=== PATIENT | female | born 1990 | race Caucasian/White ===

== ENCOUNTER 2025-06-22 20:56 | Outpatient (CLI) | payer BC, SELFPAY | END 2025-06-22 20:57 | disposition home or self-care (01) | PROVIDERS: Visit Provider Emergency Medicine | DX: S09.90XA Unspecified injury of head, initial encounter (principal); S89.91XA Unspecified injury of right lower leg, initial encounter; T75.1XXA Unspecified effects of drowning and nonfatal submersion, initial encounter; V90.0 Drowning and submersion due to watercraft overturning; Y92.828 Other wilderness area as the place of occurrence of the external cause | CPT/HCPCS: A0425; A0427 ==

== ENCOUNTER 2025-06-22 21:37 | Emergency (ER) | payer BC, SELFPAY ==
[2025-06-22 21:38] VITALS: BP 130/86; PULSE 88; RESP 16; TEMP 36.8; O2SAT 98; BMI 25.8
--- NOTE | 2025-06-22 21:53 | CRLHL7_ITS ---
For Patients: As a result of the Cures Act, medical imaging exams and procedure reports are released immediately into your electronic medical record. You may view this report before your referring provider. If you have questions, please contact your health care provider. Indication: Ankle injury while kayaking. Technique: Right ankle 3 views. Comparison: None. Findings: Bones: Alignment is normal. No fractures or bone lesions. Joint spaces: Unremarkable. Soft tissues: Mild ankle soft tissue swelling. Impression: No acute fracture. Dictated by Cesar Granger MD @ 06/22/2025 10:52:52 PM (Electronically Signed)
--- NOTE | 2025-06-22 21:55 | CRLHL7_ITS ---
For Patients: As a result of the Cures Act, medical imaging exams and procedure reports are released immediately into your electronic medical record. You may view this report before your referring provider. If you have questions, please contact your health care provider. Indication: Injured right knee while kayaking. Technique: Right knee 3 views Comparison: None Findings: Bones: No acute fracture or dislocation. Partially visualized femur plate and screw hardware without evidence of complication. Joint spaces: No joint effusion. Joint spaces are well maintained. No substantial degenerative changes. Soft tissues: Unremarkable. Impression: No acute fracture. Dictated by Cesar Granger MD @ 06/22/2025 10:55:43 PM (Electronically Signed)
--- OUTSIDE RECORDS SUMMARY | 2025-06-22 22:35 | XMS_ITS | Clinical Summary ---
Author Organization [facility] Address [address] [place] [id number] Care Team Providers Care Police Dispatcher Name Role Phone Alba Magaña PsyD, LP Unavailable + Conner Del Toro MD Primary Care Provider [phone] Katarzyna Rios MD Unavailable Allergies Active Allergy Reactions Criticality Noted Date Comments Glucosamine Other - Describe In Comment Field 05/25/2018 Milk Hives 02/11/2020 Lactose intolerant 2019 Shellfish Containing Products Anaphylaxis,Nausea Only,Vomiting High 02/22/2016 Venom-Wasp Anaphylaxis,Rash High 03/20/2025 Medications sodium fluoride dental 1.1 % gel BRUSH 1 TO 2 TIMES DAILY 12/02/19 21 Active TENS unit and electrodes cmpkIndications :Pelvic pain As directed. 4 lead Once order is placed, it should be printed and faxed to [employer] (the distributor), along with a printed picture ID of the patient, to . If [employer] needs to be reached for clarification or speak to one of their representatives, they may be reached at . Many times, insurance will not cover the cost of the tens unit (and pads), and it is often more cost efficient for the patient to order the TENS device (and pads) on [employer], as the cost is close to around $30. With either ordering through [employer] or [employer], directions will be included in the package and patient would follow those 1 Each 02/29/20 22 Active SUMAtriptan (IMITREX) 100 mg tabletIndicatio ns:Migraine syndrome TAKE 1 TABLET BY MOUTH TWICE DAILY NEEDED FOR MIGRAINE. GIVE AT MINIMUM OF 2 HOURS APART. MAX DOSE 200MG PER 24 HOURS 10 Tablet 3 11/22/19 24 Active folic acid 1 mg tablet 10/30/20 23 Active Emgality Pen 120 mg/mL penIndications: Migraine syndrome INJECT 120MG UNDER THE SKIN EVERY 4 WEEKS. 1 mL 02/27/20 24 Active tub rider (Dexcom G7 Vat House Laborer) for continuous blood glucose monitor (CGM)Indication s:Hypoglycemia This is for the glucose LEAD ATG DEVELOPER , also order the sensors. 1 Each 08/07/20 24 Active sensor (Dexcom G7 Sensor) for continuous blood glucose monitor (CGM)Indication s:Hypoglycemia To be used to read blood sugars, change sensor every 10 days. This is for the glucose SENSOR, also order the tub rider. 9 Each 3 08/07/20 24 Active tiZANidine (ZANAFLEX) 4 mg tabletIndicatio ns:Scoliosis, or kyphoscoliosis, idiopathic Take 1 Tablet (4 mg) by mouth at bedtime. 90 Tablet 3 12/02/19 25 Active prochlorperazin e (COMPAZINE) 10 mg tabletIndicatio ns:Migraine syndrome Take 1 Tablet (10 mg) by mouth every 6 hours if needed for Nausea/Vomiting. 20 Tablet 1 12/02/19 25 Active gabapentin 300 mg capsuleIndicati ons:EDS (Asher-Danlos syndrome) (HC),Scoliosis, or kyphoscoliosis, idiopathic,Migr jim syndrome Take 3 Capsules (900 mg) by mouth two times daily. 180 Capsule 03/04/20 25 Active cloNIDine HCL 0.3 mg tabletIndicatio ns:PTSD (post-traumatic stress disorder) Take 1 Tablet (0.3 mg) by mouth at bedtime. 30 Tablet 5 03/04/20 25 Active ARIPiprazole 10 mg tabletIndicatio ns:PTSD (post-traumatic stress disorder),Curre nt severe episode of major depressive disorder without psychotic features, unspecified whether recurrent (HC) Take 1 Tablet (10 mg) by mouth once daily. 30 Tablet 5 03/04/20 25 Active EPINEPHrine 0.3 mg/0.3 mL auto-injectorIn dications:Aller gy history, seafood ADMINISTER 0.3 MG IN THE MUSCLE 1 TIME NEEDED FOR ALLERGIC REACTION 2 Each 1 03/21/20 25 Active albuterol HFA 90 mcg/actuation inhalerIndicati ons:SOB (shortness of breath) Inhale 1-2 Puffs by mouth every 4 hours if needed for Shortness Of Breath or Wheezing. 1 Each 04/11/20 25 Active galcanezumab-gn lm (Emgality Syringe) 120 mg/mL syrgIndications :Migraine syndrome Inject 120 mg subcutaneous every 4 weeks. 1 mL 12 04/11/20 25 Active dextromethorpha n-bupropion (Auvelity) 45-105 mg tabletIndicatio ns:Moderate episode of recurrent major depressive disorder (HC) Take 1 Tablet by mouth two times daily. 60 Tablet 04/17/20 25 Active hydrOXYzine HCL 50 mg tabletIndicatio ns:PTSD (post-traumatic stress disorder),Gener alized anxiety disorder Take 2 Tablets (100 mg) by mouth 3 times daily if needed (anxiety). 120 Tablet 04/17/20 25 Active clonazePAM (KLONOPIN) 1 mg tabletIndicatio ns:PTSD (post-traumatic stress disorder) Take 1 Tablet (1 mg) by mouth once daily if needed for Anxiety. 30 Tablet 1 05/27/20 25 Active metFORMIN (GLUCOPHAGE XR) 500 mg Extended-Releas e tabletIndicatio ns:Hyperglycemi a Take 1 Tablet (500 mg) by mouth once daily. 90 Tablet 1 06/10/20 25 Active clonazePAM 1 mg tabletIndicatio ns:PTSD (post-traumatic stress disorder) Take 1 Tablet (1 mg) by mouth once daily if needed for Anxiety. 30 Tablet 1 03/04/20 25 025 Discontin ued(Reord er (E-cancel not sent)) Active Problems Problem Noted Date Diagnosed Date Cervical cancer screening 05/15/2025 Overview (05/15/2025): 04/2025 NIL/HPV negative Plan: HPV based testing in 5 years Opioid use disorder in remission 01/03/2023 Overview (03/01/2023): Was started on opioids chronically by prior PCP for recurrent pain related to endometriosis and Asher Danlos injuries. She and I were able to taper her off of the opioids when we though she just had physical dependence but due to cravings, obtaining and using opioids without a prescription and withdrawals, we did diagnose opioid use disorder. Patient has significant complexity related to chronic pain, other sedating medications (gabapentin, clonazepam) and psychiatric history. Her also has chronic pain and is on opioids prescribed by the pain clinic. She did just finish intensive outpatient treatment at [facility]. I do think suboxone would be a great fit for her. We will refer to addiction medicine for initiation given complexity of her care and then I could take over management once stable. 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 03/2022 patient was able to taper off of chronic opioids and start on naltrexone, which is specifically for endometriosis related pain. Is also on meloxicam and gabapentin. For acute flares of pain: Patient will continue meloxicam, take cyclobenzaprine PRN and increase gabapentin to 600mg TID. If this isn't enough to get her through her pain, she will schedule an appointment, we will pause the naltrexone and try a high affinity opioid for a very brief period (2-3 days). For surgeries: Patient should stop naltrexone 2-3 days prior to surgery. Hydromorphone may be more effective for people on naltrexone as it has a higher opioid receptor binding capacity. Opioids can be used as normal. Then she should restart naltrexone (can start at a lower dose) 3-4 days after last opioid dose. 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 Mild persistent asthma 04/28/2021 Obsessive-compulsive disorder 02/15/2021 Mild episode of recurrent major depressive disor gabo 02/01/2021 PMDD (premenstrual dysphoric disorder) Scoliosis, or kyphoscoliosis, idiopathic 020 Migraine syndrome 08/03/2018 Postural dizziness with presyncope 05/11/2018 Surveillance of previously prescribed contracept jeanne pill 05/16/2017 Overview (05/16/2017): Currently on Viorelle, d/c'd April 2017 d/t RUQ pain Generalized anxiety disorder 08/02/2016 PTSD (post-traumatic stress disorder) 08/02/2016 Resolved Problems Problem Noted Date Diagnosed Date Resolved Date Current severe episode of ma vic depressive disorder without psychotic features, unspecified whether recurrent 12/02/2024 05/27/2025 Opioid withdrawal 12/06/2022 12/06/2022 Severe episode of recurrent major depressive disorder, without psychotic features 04/28/202102/2022 Anxiety 04/25/2018 03/23/[address] 01/05/2018 9 Breast pain, right 08/23/2017 Overview (08/27/2017): 08/23/2017: referral to [facility]: probable fibroadenomas, rck US in 6 mos Routine physical examination 05/15/2017 03/23/2022 Overview (05/16/2017): Last physical: 05/16/2017 Last pap smear: 2015 normal (can do every 3 yrs) Last TDAP: 2016 Last Lipid: 2015 Last TSH: Last FBS: Last mammogram: Last Colonoscopy: Last bone density scan: Encounters Date Type Department Care Team Description 06/10/2025 1:[address] [facility] [address] [place] [address] Conner Del Toro MD Telehealth (No vitals); Hospital F/U (06/08/2025 Hyperglycemia) 06/10/2025 Travel 06/08/2025 5:06 PM CDT - 06/08/2025 7:04 PM CDT Emergency [facility] [address] [place] [address] Constantine Hernandez MD Hyperglycemia (Primary Dx) Discharge Disposition: Home Self Care 06/08/2025 3:05 PM CDT Office Visit [facility] [address] [place] [phone] Orly Hatfield NP High Blood Sugar 06/08/2025 Travel 06/08/2025 Nurse Triage [address] [phone] Conner Del Toro MD High Blood Sugar 05/27/2025 2:45 PM CDT Telemedicine [facility] [address] [place] [phone] Katarzyna Rios MD Medication Management 05/27/2025 Travel 04/30/2025 1:50 PM CDT Office Visit [address] [phone] Conner Del Toro MD Pap Plan 04/30/2025 Travel 04/18/2025 Telephone [facility] [address] [place] [phone] Katarzyna Rios MD Prior Authorization (dextromethorphan-bupr opion (Auvelity) 45-105 mg tablet APPROVED 01/25/25-04/25/26) 04/17/2025 9:15 AM CDT Telemedicine [facility] [address] [place] [phone] Katarzyna Rios MD Follow Up; Medication Management; Telehealth 04/17/2025 Travel 04/11/2025 3:50 PM CDT Office Visit [address] [phone] Conner Del Toro MD Physical 04/11/2025 Travel 03/26/2025 9:45 AM CDT Office Visit [facility] [address] [place] [address] Facundo Wagner DPM Follow Up (Left foot, 4 week follow up) 03/26/2025 Travel from Last 3 Months Immunizations Immunization Administration Dates Next Due COVID-19 vaccine (Pfizer-Bio NTech 30mcg/0.3mL) PF, MDV 03/15/2021,02/21/2021 HPV 9 (Gardasil 9) 07/11/2018,04/25/2018 Influenza, IIV4 09/04/2020, 8,08/08/2017,2015 Influenza, IIV4 (=>6mos) MDV 07/26/2019 Tdap 12/27/2016 Family History Relation Name Status Comments Father Other Mother Other Social History Tobacco Use Types Packs/Day Years Used Date Smoking Tobacco: Never Passive Smoke Exposure: Never Smokeless Tobacco: Never Tobacco Cessation:Counseling Given: Yes Comments:NO EXPOSURE TO SECONDHAND SMOKE Alcohol Use Standard Drinks/Week Comments No 0 (1 standard drink = 0.6 oz pur e alcohol) PHQ-2 Answer Date Recorded PHQ-2 TOTAL SCORE 1 05/27/2025 Social Connections Answer Date Recorded Do you often feel lonely or isolated from those around you? 0 07/19/2024 Financial Resource Strain Answer Date R ecorded Difficulty of Paying Living Expenses 3 07/19/2024 Difficulty of Paying Living Expenses Not on file 07/19/2024 Food Insecurity Answer Date Recorded Do you worry your food will run out before you are able to buy more? 1 07/19/2024 Transportation Needs Answer Date Record ed Does lack of transportation keep you from medica l appointments? 1 07/19/2024 Does lack of transportation keep you from work, meetings or getting things that you need? 1 07/19/2024 Housing Stability Answer Date Recorded What is your housing situation today? 1 07/19/2024 Interpersonal Safety Answer Date Record ed Are you being hit, kicked, p ushed or yelled at (see row info)? No 06/08/2025 Interpersonal Safety Abuse 12 - 18 Not on file 06/08/2025 Interpersonal Safety Ambulatory Vulnerability No t on file 06/08/2025 Utilities Answer Date Recorded Do you have trouble paying f or utilities (for example, heat, electricity, water, phone)? 1 07/19/2024 Comments No Sex and Gender Information Value Date Recorded Sex Assigned at Not on file Legal Sex Female 11:41 AM SHOE SHINER Gender Identity Not on file Sexual Orientation Not on file Occupation Industry Job Start Date Job End Date [employer] Not on file Not on file Not on file Travel History Travel Start Travel End [place] 05/29/2025 06/03/2025 Obstetrics History Para Term AB IAB SAB Ectopic Multiple Livin g Live Births 0 0 0 0 0 0 0 0 0 0 Last Filed Vital Signs Vital Sign Reading Time Taken Comments Blood Pressure 111/77 06/08/2025 7:02 PM CDT Pulse 86 06/08/2025 4:13 PM CDT Temperature 36.7 C (98.1 F) 06/08/2025 4:13 PM CDT Respiratory Rate 12 06/08/2025 4:13 PM CDT Oxygen Saturation 98% 06/08/2025 4:13 PM CDT Inhaled Oxygen Concentration - - Weight 83.5 kg (184 lb) 06/08/2025 4:13 PM CDT Height 175.3 cm (5' 9) 06/08/2025 4:13 PM CDT Body Mass Index 27.17 06/08/2025 4:13 PM CDT Plan of Treatment Upcoming Encounters Date Type Department Care Team (Late st Contact Info) Description 07/08/2025 11:45 AM CDT Telemedicine [facility] [address] [place] [address] Katarzyna Rios MD [address] [place] [address] [address] [place] [address] Health Maintenance Due Date Last Done Comments Hepatitis B series for 19+ (1 of 3 - 19+ 3-dose series) 2011 COVID-19 vaccine series ( season) 2024 03/15/2021, 02/21/2021 Influenza Vaccine (#1) 2025 , 07/26/2019, 08/06/2018, Additional history exists BMI (ht and wt on same day) for age 18+ 04/30/2026 04/30/2025, 04/11/2025, 01/29/2025, Additional history exists Depression screening for age 12+ 05/27/2026 05/27/2025, 04/17/2025, 03/20/2025, Additional history exists Tetanus booster 12/27/2026 12/27/2016 Pap test for age 21-65 04/30/2030 , 04/30/2025, 03/23/2020, Additional history exists Hepatitis C screening for age 18-79 Completed 05/13/2017 HIV for age 15-65 Completed 05/10/2023 Pneumococcal series for age 6-49 Aged Out No longer eligible based on patient's age to complete this topic Medical Devices Implanted Type Area Hand Spray Operator Device Identifier Shelf Expiration Date Model / Serial / Lot Adhesion Barrier 5x6in Seprafilm Absorb - [id number] Implanted:Qty: 2 on 06/07/2022 by Jessie Hernandez DO at [facility] [employer] 02/22/2024 [id number] / / [id number] Adhesion Barrier 5x6in Seprafilm Absorb - [id number] Implanted:Qty: 1 on 06/07/2022 by Jessie Hernandez DO at [facility] [employer] 08/05/2024 [id number] / / [id number] Procedures Procedure Name Priority Date/Time Associated Diagnosis Comments UA W/ SEDIMENT EXAM REFLEXED PER CRITERIA STAT 06/08/2025 5:54 PM CDT CBC WITH AUTO DIFFERENTIAL STAT 06/08/2025 5:22 PM CDT ,SERUM QUALITATIVE STAT 06/08/2025 5:22 PM CDT BETA HYDROXYBUTYRATE IN HOUSE STAT 06/08/2025 5:22 PM CDT COMP METABOLIC PANEL STAT 06/08/2025 5:22 PM CDT BLOOD GAS,VENOUS STAT 06/08/2025 5:22 PM CDT CBC WITH AUTO DIFFERENTIAL STAT 06/08/2025 5:22 PM CDT GLUCOSE METER Routine 06/08/2025 4:13 PM CDT GUEST RELATIONS AGENT THIN PREP PAP SCREEN IMAGED Routine 04/30/2025 2:10 PM CDT Screening for malignant neoplasm of cervix HPV HIGH RISK Routine 04/30/2025 2:10 PM CDT Screening for malignant neoplasm of cervix HEMOGLOBIN A1C Routine 04/11/2025 4:40 PM CDT Well adult exam LIPID PANEL W REFLEX MEASURED LDL Routine 04/11/2025 4:40 PM CDT Well adult exam COMP METABOLIC PANEL Routine 04/11/2025 4:40 PM CDT Migraine syndrome SOB (shortness of breath) CBC WITH AUTO DIFFERENTIAL Routine 04/11/2025 4:40 PM CDT Migraine syndrome SOB (shortness of breath) LC HIV-1/O/2, 4TH GENERATION Routine 05/10/2023 1:51 PM CDT History of night sweats Weight loss, abnormal ANTI HCV Routine 05/13/2017 11:18 AM CDT Abdominal pain, RUQ from Last 3 Months or Most Recently Relevant to Health Maintenance Results * (ABNORMAL) UA W/ SEDIMENT EXAM REFLEXED PER CRITERIA (06/08/2025 5:54 PM CDT) COLOR Yellow Yellow Color 06/08/2025 6:05 PM [facility] CLARITY Clear Clear Clarity 06/08/2025 6:05 PM [facility] SPECIFIC GRAVITY,URINE >=1.030(A) 1.010, 1.015, 1.020, 1.025 06/08/2025 6:05 PM [facility] PH,URINE 5.5 6.0, 7.0, 8.0, 5.5, 6.5, 7.5, 8.5 06/08/2025 6:05 PM [facility] UROBILINOGEN, QUALITATIVE Normal Normal EU/dl 06/08/2025 6:05 PM [facility] PROTEIN, URINE Negative Negative mg/dL 06/08/2025 6:05 PM T [facility] GLUCOSE, URINE Negative Negative mg/dL 06/08/2025 6:05 PM [facility] KETONES,URINE Negative Negative mg/dL 06/08/2025 6:05 PM T [facility] BILIRUBIN,URI NE Negative Negative 06/08/2025 6:05 PM [facility] OCCULT BLOOD,URINE Negative Negative 06/08/2025 6:05 PM [facility] NITRITE Negative Negative 06/08/2025 6:05 PM [facility] LEUKOCYTE ESTERASE Negative Negative 06/08/2025 6:05 PM [facility] Urine URINE SPECIMEN / Unknown Non-Blood / Unknown 06/08/2025 5:54 PM CDT 06/08/2025 5:58 PM CDT us Constantine Hernandez MD URINE Final R esult Performing Organization Address City/State/[facility] Co de Phone Number [facility] [address] [place] [address] * CBC WITH AUTO DIFFERENTIAL (06/08/2025 5:22 PM CDT) WHITE BLOOD COUNT 6.8 4.5 - 11.0 thou/cu mm 06/08/2025 5:31 PM [facility] RED BLOOD COUNT 4.45 4.00 - 5.20 mil/cu mm 06/08/2025 5:31 PM [facility] HEMOGLOBIN 12.9 12.0 - 16.0 g/dL 06/08/2025 5:31 PM [facility] HEMATOCRIT 39.9 33.0 - 51.0 % 06/08/2025 5:31 PM [facility] MCV 90 80 - 100 fL 06/08/2025 5:31 PM [facility] MCH 29.0 26.0 - 34.0 pg 06/08/2025 5:31 PM [facility] MCHC 32.3 32.0 - 36.0 g/dL 06/08/2025 5:31 PM [facility] RDW 13.6 11.5 - 15.5 % 06/08/2025 5:31 PM [facility] PLATELET COUNT 248 140 - 440 thou/cu mm 06/08/2025 5:31 PM [facility] MPV 10.2 6.5 - 11.0 fL 06/08/2025 5:31 PM [facility] % NEUT 60.1 % 06/08/2025 5:31 PM [facility] % LYMPH 30.3 % 06/08/2025 5:31 PM [facility] % MONO 7.2 % 06/08/2025 5:31 PM [facility] % EOS 2.1 % 06/08/2025 5:31 PM [facility] % BASO 0.3 % 06/08/2025 5:31 PM [facility] ABSOLUTE NEUTROPHILS 4.1 1.7 - 7.0 thou/cu mm 06/08/2025 5:31 PM [facility] ABSOLUTE LYMPHOCYTES 2.1 0.9 - 2.9 thou/cu mm 06/08/2025 5:31 PM [facility] ABSOLUTE MONOCYTES 0.5 <0.9 thou/cu mm 06/08/2025 5:31 PM [facility] ABSOLUTE EOSINOPHILS 0.1 <0.5 thou/cu mm 06/08/2025 5:31 PM [facility] ABSOLUTE BASOPHILS 0.0 <0.3 thou/cu mm 06/08/2025 5:31 PM [facility] Blood BLOOD SPECIMEN / Unknown Butterfly / Unknown 06/08/2025 5:22 PM T 06/08/2025 5:26 PM T us Constantine Hernandez MD HEMATOLOGY Final R esult [facility] [address] [place] [address] * BETA HYDROXYBUTYRATE IN HOUSE (06/08/2025 5:22 PM CDT) Pathologist [facility] BETA HYDROXYBUTYRATE <0.6 <0.6 mmol/L 06/08/2025 5:28 PM CDT [facility] Blood BLOOD SPECIMEN / Unknown Butterfly / Unknown 06/08/2025 5:22 PM CDT 06/08/2025 5:26 PM CDT Constantine Hernandez MD SEND OUTS Final R esult [facility] [address] [place] [address] * ,SERUM QUALITATIVE (06/08/2025 5:22 PM CDT) Pathologist [facility] ,SERU M Negative Negative 06/08/2025 5:38 PM CDT [facility] Blood BLOOD SPECIMEN / Unknown Butterfly / Unknown 06/08/2025 5:22 PM CDT 06/08/2025 5:26 PM CDT Constantine Hernandez MD CHEMISTRY Final R esult [facility] [address] [place] [address] * (ABNORMAL) BLOOD GAS,VENOUS (06/08/2025 5:22 PM CDT) Pathologist [facility] PH, VENOUS 7.38 7.32 - 7.43 06/08/2025 5:31 PM CDT [facility] PCO2, VENOUS 45 41 - 51 mmHg 06/08/2025 5:31 PM CDT [facility] PO2, VENOUS 48(H) 35 - 40 mmHg 06/08/2025 5:31 PM CDT [facility] HCO3,VENOUS 27 22 - 29 mmol/L 06/08/2025 5:31 PM CDT [facility] BASE EXCESS, VENOUS, POCT 1.0 -2.0 - 3.0 06/08/2025 5:31 PM [facility] O2 SATURATION, VENOUS 85(H) 70 - 75 % 06/08/2025 5:31 PM [facility] PATIENT TEMPERATURE 37.0 Degrees C 06/08/2025 5:31 PM [facility] Blood BLOOD SPECIMEN / Unknown Butterfly / Unknown 06/08/2025 5:22 PM CDT 06/08/2025 5:26 PM CDT us Constantine Hernandez MD CHEMISTRY Final R esult [facility] [address] [place] [address] * (ABNORMAL) COMP METABOLIC PANEL (06/08/2025 5:22 PM CDT) Only the most recent of2 resultswithin the time period is included. SODIUM 141 136 - 145 mmol/L 06/08/2025 5:46 PM [facility] POTASSIUM 3.7 3.5 - 5.1 mmol/L 06/08/2025 5:46 PM [facility] CHLORIDE 106 98 - 107 mmol/L 06/08/2025 5:46 PM [facility] CO2,TOTAL 23 22 - 29 mmol/L 06/08/2025 5:46 PM [facility] ANION GAP 12 5 - 18 06/08/2025 5:46 PM [facility] GLUCOSE 108(H) 70 - 99 mg/dL 06/08/2025 5:46 PM [facility] CALCIUM 8.8 8.8 - 10.4 mg/dL 06/08/2025 5:46 PM [facility] Comment: Reference ranges for this test were updated on 09/24/2024 to reflect our healthy population more accurately. Reference range changes are not retroactively applied to results, but previous results using the same methodology can be interpreted in the context of the new reference range. BUN 12 6 - 20 mg/dL 06/08/2025 5:46 PM [facility] CREATININE 0.87 0.50 - 0.90 mg/dL 06/08/2025 5:46 PM [facility] BUN/CREAT RATIO 14 - 5:46 PM [facility] eGFR 90(L) >90 mL/min/1. 73m2 06/08/2025 5:46 PM [facility] Comment:As of 2022, eG FR is calculated by the CKD-EPI creatinine equation without race adjustment. eGFR can be influenced by muscle mass, exercise, and diet. The reported eGFR is an estimation only and is only applicable if the renal function is stable. ALBUMIN 4.4 4.0 - 4.9 g/dL 06/08/2025 5:46 PM [facility] PROTEIN,TOTAL 6.9 6.0 - 8.0 g/dL 06/08/2025 5:46 PM [facility] BILIRUBIN,TOTAL 0.3 0.0 - 1.2 mg/dL 06/08/2025 5:46 PM [facility] ALK PHOSPHATASE 69 35 - 104 IU/L 06/08/2025 5:46 PM [facility] ALT (SGPT) 34 10 - 35 IU/L 06/08/2025 5:46 PM [facility] AST (SGOT) 31 10 - 35 IU/L 06/08/2025 5:46 PM [facility] Blood BLOOD SPECIMEN / Unknown Butterfly / Unknown 06/08/2025 5:22 PM CDT 06/08/2025 5:26 PM CDT us Constantine Hernandez MD CHEMISTRY Final R esult [facility] [address] [place], [place] [address] * (ABNORMAL) GLUCOSE METER (06/08/2025 4:13 PM CDT) [facility] Signature GLUCOSE METER 106(H) 65 - 100 mg/dL 06/10/2025 8:35 AM CDT [facility] Blood BLOOD SPECIMEN / Unknown 06/08/2025 4:13 PM CDT 06/10/2025 8:35 AM CDT us Doctor Unknown CHEMISTRY Final Result [facility] [address] [place] [address] * GUEST RELATIONS AGENT THIN PREP PAP SCREEN IMAGED (04/30/2025 2:10 PM CDT) Case Report Gynecologic Cytology Report Case: [id number] Authorizing Provider: Conner Del Toro MD Collected: 04/30/2025 1410 Ordering Location: [facility] Received: 04/30/2025 1527 Clinic First Screen: Avinash Guajardo Specimen: GUEST RELATIONS AGENT ThinPrep Vial Screening, Cervical 05/14/2025 3:[address] [facility] INTERPRETATION/ RESULT NEGATIVE FOR INTRAEPITHELIAL LESION OR MALIGNANCY (NIL) (none) 05/14/2025 3:[address] [facility] at 1527 CDT SPECIMEN ADEQUACY Satisfactory for evaluation No endocervical component seen 05/14/2025 3:[address] [facility] HPV REQUEST HPV and PAP 05/14/2025 3:[address] [facility] Date of LMP unknown 05/14/2025 3:[address] [facility] Last Pap Date 03/23/20 05/14/2025 3:27 PM CDT [facility] [employer] ENTRAL LABORATORY Last Pap Result NIL 3:[address] [facility] Abnormal Pap or Jeddo Bx in last 5 years No 05/14/2025 3:[address] [facility] Menstrual Status Regular Periods 05/14/2025 3:[address] [facility] Jeddo Bx Done Today No 05/14/2025 3:27 PM CDT [facility] Additional Information None given 05/14/2025 3:27 PM CDT [facility] ENTR[facility] LABORATORY Comment: Cytology is screened at [facility] - [address], [place] [address] and [facility] - [address] [place] [address], [place] [address] and [facility] - [address] [place] [address] Interpreted at [facility] - [address] [place] [address], [place] [address] Automated Review Successful 05/14/2025 3:27 PM CDT [facility] Comment:Specimen processed s uccessfully by automated heat transfer technician device, ThinPrep Imaging System, [employer] ANCILLARY TESTING GUEST RELATIONS AGENT HPV Ordered, Please see separate report 05/14/2025 3:27 PM CDT [facility] Note The pap test is a screening technique, not a diagnostic procedure. It is used primarily to screen for squamous cancers and precursor lesions. Published studies have shown that it is subject to both false negative and false positive results. The pap test should not be used as the sole means to diagnose or exclude pre-malignant and malignant lesions. 05/14/2025 3:27 PM CDT [facility] Other (Cervical) Non-Blood / Unknown 04/30/2025 2:10 PM CDT 04/30/2025 3:27 PM CDT Conner Del Toro MD PATHOLOGY/CYTOLOGY Final Re sult [facility] [address] [place] [address], * HPV HIGH RISK (04/30/2025 2:10 PM CDT) TYPE 16 Negative Negative 05/03/2025 5:09 PM CDT [facility] TRAL LABORATORY TYPE 18 Negative Negative 05/03/2025 5:09 PM CDT [facility] TRAL LABORATORY OTHER HIGH RISK TYPES Negative Negative 05/03/2025 5:09 PM CDT [facility] TRAL LABORATORY Other (Cervical) Non-Blood / Unknown 04/30/2025 2:10 PM CDT 05/01/2025 9:03 AM CDT Narrative [facility] - 05/03/2025 5:09 PM CDT HPV types 16, 18, 31, 33, 35, 39, 45, 51, 52, 56, 58, 59, 66 and 68 DNA were undetectable or below the pre-set threshold. Methodology: Richard Dinora 4800 HPV Test Conner Del Toro MD MICROBIOLOGY Final Resul t [facility] [address] [place] [address], * HEMOGLOBIN A1C (04/11/2025 4:40 PM CDT) HEMOGLOBIN A1C 5.1 <5.7 % [employer] Comment: For the purpose of screening for the presence of diabetes: <5.7% Consistent with the absence of diabetes 5.7-6.4% Consistent with increased risk for diabetes (prediabetes) > or =6.5% Consistent with diabetes This assay result is consistent with a decreased risk of diabetes. Currently, no consensus exists regarding use of hemoglobin A1c for diagnosis of diabetes in children. According to [place] Diabetes [employer] (ADA) guidelines, hemoglobin A1c <7.0% represents optimal control in non- diabetic patients. Different metrics may apply to specific patient populations. Standards of Medical Care in Diabetes(ADA). Blood BLOOD SPECIMEN / Unknown 04/11/2025 4:40 PM CDT 04/11/2025 4:40 PM CDT Narrative [facility] - 04/12/2025 4:42 AM CDT FASTING:NO FASTING: NO Conner Del Toro MD CHEMISTRY Final Resul t oneforty [facility] [address] [place] [address], [place] [phone] [facility] [address] [place] [address] * (ABNORMAL) LIPID PANEL W REFLEX MEASURED LDL (04/11/2025 4:40 PM CDT) CHOLESTEROL, TOTAL 192 <200 mg/dL [facility] HDL CHOLESTEROL 53 > OR = 50 mg/dL [facility] TRIGLYCERIDES 87 <150 mg/dL [facility] LDL-CHOLESTEROL 120(H) mg/dL (calc) [facility] Comment: Reference range: <100 Desirable range <100 mg/dL for primary prevention; <70 mg/dL for patients with CHD or diabetic patients with > or = 2 CHD risk factors. LDL-C is now calculated using the Teresa calculation, which is a validated novel method providing better accuracy than the Friedewald equation in the estimation of LDL-C. Gregor CAMERON et al. CHRIS. 2013;310(19): 5883-6246 (http://education.Spine Pain Management/faq/JOQ052) CHOL/HDLC RATIO 3.6 <5.0 (calc) [facility] NON HDL CHOLESTEROL 139(H) <130 mg/dL (calc) [facility] Comment: For patients with diabetes plus 1 major ASCVD risk factor, treating to a non-HDL-C goal of <100 mg/dL (LDL-C of <70 mg/dL) is considered a therapeutic option. Blood BLOOD SPECIMEN / Unknown 04/11/2025 4:40 PM CDT 04/11/2025 4:40 PM CDT Narrative [facility] - 04/12/2025 4:31 AM CDT FASTING:NO FASTING: NO us Conner Del Toro MD CHEMISTRY Final Resul t oneforty [facility] [address] [place] [address], [facility] [address] [place] [address] * CBC AND DIFFERENTIAL (04/11/2025 4:40 PM CDT) Pathologist [facility] WHITE BLOOD CELL COUNT 6.0 3.8 - 10.8 Thousand/u L [facility] RED BLOOD CELL COUNT 4.95 3.80 - 5.10 Million/uL [facility] HEMOGLOBIN 14.4 11.7 - 15.5 g/dL [facility] HEMATOCRIT 43.9 35.0 - 45.0 % [facility] MCV 88.7 80.0 - 100.0 fL [facility] MCH 29.1 27.0 - 33.0 pg [facility] MCHC 32.8 32.0 - 36.0 g/dL [facility] Comment: For adults, a slight decrease in the calculated MCHC value (in the range of 30 to 32 g/dL) is most likely not clinically significant; however, it should be interpreted with caution in correlation with other red cell parameters and the patient's clinical condition. RDW 12.8 11.0 - 15.0 % [facility] PLATELET COUNT 305 140 - 400 Thousand/u L [facility] MPV 10.5 7.5 - 12.5 fL [facility] ABSOLUTE NEUTROPHILS 3,420 1,500 - 7,800 cells/uL [facility] ABSOLUTE LYMPHOCYTES 2,034 850 - 3,900 cells/uL [facility] ABSOLUTE MONOCYTES 384 200 - 950 cells/uL [facility] ABSOLUTE EOSINOPHILS 120 15 - 500 cells/uL [facility] ABSOLUTE BASOPHILS 42 0 - 200 cells/uL [facility] NEUTROPHILS 57 % [facility] LYMPHOCYTES 33.9 % [facility] MONOCYTES 6.4 % [facility] EOSINOPHILS 2.0 % [facility] BASOPHILS 0.7 % [facility] Blood BLOOD SPECIMEN / Unknown 04/11/2025 4:40 PM CDT 04/11/2025 4:40 PM CDT Narrative [facility] - 04/12/2025 2:40 AM CDT FASTING:NO FASTING: NO us Conner Del Toro MD HEMATOLOGY Final Resul t oneforty [facility] [address] [place] [address], [facility] [facility] [address] [place] [address] * LC HIV-1/O/2, 4TH GENERATION (05/10/2023 1:51 PM CDT) Pathologist [facility] HIV Scr 4th Gen Non Reactive Non Reactive 05/16/2023 5:09 AM CDT [facility]) Comment: HIV Negative HIV-1/HIV-2 antibodies and HIV-1 p24 antigen were NOT detected. There is no laboratory evidence of HIV infection. Blood BLOOD SPECIMEN / Unknown Butterfly / Unknown 05/10/2023 1:51 PM CDT 05/10/2023 1:55 PM CDT Narrative [facility]) - 05/16/2023 5:09 AM CDT Performed at: [address] [place] [id number] Poolroom/Poolhall Manager: Dragan Wilkerson MD, Phone: [phone] us Fartun Rod MD LABORATORY Fin al Result [facility] ([facility]) [address] [place] [address], * ANTI HCV (05/13/2017 11:18 AM CDT) [facility] HEPATITIS C ANTIBODY Non-Reacti ve Non-Reacti ve 05/13/2017 4:55 PM CDT [facility] TRAL LABORATORY Blood BLOOD SPECIMEN / Unknown Venipuncture / Unknown 05/13/2017 11:18 AM CDT 05/13/2017 11:18 AM CDT Narrative [facility] - 05/13/2017 4:55 PM CDT Antibodies to HCV not detected; does not exclude the possibility of exposure to HCV. us Vikram Perez MD SEND OUTS Final Resu lt [facility]-CENTRAL LABORATORY [address] [place] [address], from Last 3 Months or Most Recently Relevant to Health Maintenance Insurance [facility] [place] [id number] [address] [address] [place] [address] Advance Directives * Full Code (Latest Code Status on File) Date Activated Date Inactivated Comments 06/07/2022 8:39 AM 06/08/2022 1:31 PM Question Answer Comments Code Status Discussion: Not Discussed Care Teams Police Dispatcher Relationship Specialty Start Date End Date Conner Del Toro MD [address] [place] [address] [place] [address] PCP - General Family Practice 10/27/23 [facility] [place] [address] [place] [address] Psychologist Psychology 04/02/20 Katarzyna Rios MD [address] [place] [address] Psychiatry 09/20/24
--- OUTSIDE RECORDS SUMMARY | 2025-06-22 22:35 | XMS_ITS | Clinical Summary ---
Author Organization [facility] Address [address] [place] [address] Care Team Providers Care Systems Development Consultant Name Role Phone Unavailable Primary Care Provider Unavailabl e Allergies Active Allergy Reactions Criticality Noted Date Comments Glucosamine Other 05/25/2018 Medications ARIPiprazole (Abilify) 10 mg tablet TAKE 1/2 TABLET BY MOUTH DAILY FOR 2 WEEKS THEN TAKE 1 TABLET BY MOUTH DAILY 04/24/2024 Active busPIRone (Buspar) 10 mg tablet Take 10 mg by mouth in the morning and 10 mg at noon and 10 mg in the evening. 04/19/2024 Active Emgality Syringe 120 mg/mL prefilled syringe INJECT 120 MG UNDER THE SKIN EVERY 4 WEEKS Active tiZANidine (Zanaflex) 2 mg tablet TAKE 1-2 TABLETS BY MOUTH EVERY 8 HOURS IF NEEDED FOR MUSCLE SPASM. TAKE UP TO 3 TIMES DAILY Active SUMAtriptan (Imitrex) 100 mg tablet Take by mouth. 11/22/2023 Active prochlorperazin e (Compazine) 10 mg tablet Take by mouth. 11/14/2023 Active cetirizine (ZyrTEC) 10 mg tablet Take 10 mg by mouth in the morning. 08/16/2023 Active clonazePAM (KlonoPIN) 1 mg tablet Take 1 mg by mouth if needed at bedtime. 06/17/2024 Active EPINEPHrine (Epipen) 0.3 mg/0.3 mL injection syringe Inject into the shoulder, thigh, or buttocks. 03/19/2024 Active Active Problems No known active problems Social History Tobacco Use Types Packs/Day Years Used Date Smoking Tobacco: Never Assessed Comments Unknown Sex and Gender Information Value Date Recorded Sex Assigned at Not on file Legal Sex Female 9:39 PM CDT Gender Identity Not on file Sexual Orientation Not on file Plan of Treatment Health Maintenance Due Date Last Done Comments Pneumococcal Vaccine: Pediat rics (0 to 5 Years) and At-Risk Patients (6 to 49 Years) (1 of 2 - PCV) 2011 RSV Vaccines (1 - 1-dose 75+ series) 2067
--- NOTE | 2025-06-22 22:46 | CRLHL7_ITS ---
For Patients: As a result of the Century Cures Act, medical imaging exams and procedure reports are released immediately into your electronic medical record. You may view this report before your referring provider. If you have questions, please contact your health care provider. INDICATION: Minor trauma, occipital pain. TECHNIQUE: CT head without contrast. COMPARISON: None. FINDINGS: CSF spaces: Within normal limits for age. Brain parenchyma: The antonio-white differentiation is maintained. No sign of mass, hemorrhage, or midline shift. Skull base and calvarium: The visualized paranasal sinuses and mastoid air cells demonstrate no acute or significant findings. The visualized orbits are grossly unremarkable. No skull fractures. IMPRESSION: No acute intracranial abnormality. Please note that all CT scans at this facility use dose modulation, iterative reconstruction, and/or weight-based dosing when appropriate to reduce radiation dose to as low as reasonably achievable. Dictated by Sanjay Rivera MD @ 06/22/2025 11:38:17 PM (Electronically Signed)
[2025-06-22 23:50] VITALS: BP 113/84; PULSE 74; RESP 16; O2SAT 100
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
== END 2025-06-22 23:59 | disposition home or self-care (01) ==
PROVIDERS: Emergency Provider Emergency Medicine
DX: S09.90XA Unspecified injury of head, initial encounter (principal); S93.401A Sprain of unspecified ligament of right ankle, initial encounter; M25.561 Pain in right knee; Y93.16 Activity, rowing, canoeing, kayaking, rafting and tubing
CPT/HCPCS: 70450; 73562; 73610; 82962; 96372; 99284; J1885